=== PATIENT | male | born 1930 | race Two or more races ===

== ENCOUNTER 2021-07-23 15:41 | Inpatient (IN) | payer OTHER ==
[~2021-07-23] VITALS: Ht 177.8 cm; Wt 82.5 kg
[2021-07-23 17:12] LABS: Hematocrit 16.9 % (41.0-53.0); Mean Corpuscular Hemoglobin 39.2 pg (28.0-32.0); Mean Corpuscular Hgb Conc. 28.9 g/dL (32.0-36.0); Mean Corpuscular Volume 135.5 fL (80.0-100.0); Red Blood Cells 1.25 10^6/uL (4.5-5.90)
[2021-07-23 17:28] LABS: Basophils % (manual) 0 (0.0-2.0); Blast Cells 0; Eosinophils % (manual) 0 (0-7); Hemoglobin 4.9 g/dL (13.5-17.5); Metamyelocytes % 0; Myelocytes % 0; Promyelocytes % 0; Reactive Lymphocytes 0
[2021-07-23 17:29] LABS: Albumin 3.1 g/dL (3.4-5.0); BUN/Creatinine Ratio 18.4; Calcium 8.1 mg/dL (8.5-10.1)
[2021-07-23 17:34] LABS: Bilirubin, Total 0.6 mg/dL (0.2-1.0); Total Protein 5.3 g/dL (6.4-8.2)
[2021-07-23 17:42] LABS: Potassium 6.6 mmol/L (3.5-5.1)
[2021-07-23] MEDS ORDERED: CALCIUM GLUC 1,000mg/50ml-NS 50 ML IV ONE (18:30)
[2021-07-23] MEDS ORDERED: SODIUM BICARBONATE 8.4 % INJ 50ML VIAL IV ONE (18:30)
[2021-07-23] MEDS ORDERED: InsuLIN REG 1unit/0.01ml Soln (100units/ml) IV ONE (18:30)
[2021-07-23] MEDS ORDERED: ALBUTEROL SULF 2.5 MG/0.5ML(0.5%) NEB SOLN NEB ONE (18:30)
[2021-07-23] MEDS ORDERED: DEXTROSE (50%) 50ML SYRG IV ONE (18:30)
[2021-07-23 19:03] LABS: Band Neutrophils % (manual) 2; Lymphocytes % (manual) 59 (10.0-50.0); Monocytes % (manual) 6 (0-12)
[2021-07-23 20:50] VITALS: BP 82/21
[2021-07-23 21:05] VITALS: BP 83/23
[2021-07-23] MEDS ORDERED: MORPHINE SULFATE INJECTION 2 MG/ML SYRG IV PRN ×2 (21:15)
[2021-07-23] MEDS ORDERED: NITROGLYCERIN 0.4 MG SL TAB SL PRN (21:15)
[2021-07-23] MEDS ORDERED: DEXTROSE (50%) 50ML SYRG IV PRN (21:15)
[2021-07-23] MEDS ORDERED: SOD CHL 0.45% 1,000 ML IV ONE (21:15)
[2021-07-23] MEDS ORDERED: ONDANSETRON HCL 4 MG/2 ML VIAL IV PRN (21:15)
[2021-07-23] MEDS ORDERED: ALBUTEROL SULF 2.5 MG/0.5ML(0.5%) NEB SOLN NEB PRN (21:15)
[2021-07-23 22:15] VITALS: BP 88/24
[2021-07-23] MEDS: ACCU-CHEK COMFORT CURVE STRIP VI SCH (22:26)
[2021-07-23] MEDS: InsuLIN REG 1unit/0.01ml Soln (100units/ml) SC SCH (22:27)
[2021-07-23 22:30] VITALS: BP 82/23
[2021-07-23] MEDS ORDERED: ALBUMIN 25% 100 ML IV ONE (23:00)
[2021-07-23] MEDS: NOREPINEPHRINE 8 MG/250ML KIT 250 ML IV SCH (23:50)
[2021-07-24] MEDS: FUROSEMIDE 40 MG/4 ML VIAL IV SCH ×2 (01:34→06:25)
[2021-07-24] MEDS: ACCU-CHEK COMFORT CURVE STRIP VI SCH ×4 (06:23→21:49)
[2021-07-24] MEDS: InsuLIN REG 1unit/0.01ml Soln (100units/ml) SC SCH ×4 (06:24→23:44)
[2021-07-24 07:05] LABS: Urine Bacteria NONE SEEN /hpf (None Seen); Urine Blood 3+ /uL (Negative)
[2021-07-24 07:06] LABS: Urine WBC 10 /hpf (0 - 3)
[2021-07-24 07:13] LABS: Hemoglobin 7.3 g/dL (13.5-17.5)
[2021-07-24 07:18] LABS: Hematocrit 25.4 % (41.0-53.0); Mean Corpuscular Hgb Conc. 28.7 g/dL (32.0-36.0); Mean Corpuscular Volume 125.6 fL (80.0-100.0); Red Blood Cells 2.02 10^6/uL (4.5-5.90)
[2021-07-24 07:23] LABS: Red Cell Distribution Width 20.9 % (11.8-14.3)
[2021-07-24 07:25] LABS: White Blood Cell 79.2 10^3/uL (4.4-10.8)
[2021-07-24 07:27] LABS: Albumin 3.3 g/dL (3.4-5.0); Band Neutrophils % (manual) 0; Basophils % (manual) 0 (0.0-2.0); Calcium 7.9 mg/dL (8.5-10.1); Metamyelocytes % 0; Myelocytes % 0; Promyelocytes % 0
[2021-07-24 07:29] LABS: BUN/Creatinine Ratio 17.7
[2021-07-24 07:32] LABS: Bilirubin, Total 0.6 mg/dL (0.2-1.0); Total Protein 5.4 g/dL (6.4-8.2)
[2021-07-24 07:36] LABS: Potassium 6.1 mmol/L (3.5-5.1)
[2021-07-24 07:43] LABS: INR 1.19 (0.9-1.15)
[2021-07-24] MEDS: ALBUMIN 25% 100 ML IV SCH ×3 (08:33→23:47)
[2021-07-24] MEDS ORDERED: SODIUM ZIRCONIUM CYCL 10 GM PAK PO ONE (09:00)
[2021-07-24] MEDS ORDERED: VANCOMYCIN PER PHARMACY 0 MG IV SCH (09:00)
[2021-07-24] MEDS ORDERED: ACETAMINOPHEN 325 MG TAB PO PRN (09:15)
[2021-07-24] MEDS: SODIUM CHLORIDE 0.9% 1,000 ML IV SCH ×2 (09:37→09:38)
[2021-07-24] MEDS ORDERED: InsuLIN REG 1unit/0.01ml Soln (100units/ml) IV ONE ×2 (09:45→19:00)
[2021-07-24] MEDS ORDERED: DEXTROSE (50%) 50ML SYRG IV ONE ×2 (09:45→19:00)
[2021-07-24] MEDS ORDERED: SODIUM BICARBONATE 8.4 % INJ 50ML VIAL IV ONE (09:45)
[2021-07-24] MEDS ORDERED: CALCIUM GLUC 1,000mg/50ml-NS 50 ML IV ONE ×2 (09:45→19:00)
[2021-07-24] MEDS ORDERED: ALBUTEROL SULF 2.5 MG/0.5ML(0.5%) NEB SOLN NEB ONE ×2 (09:45→19:00)
[2021-07-24] MEDS: ACETAMINOPHEN 325 MG TAB PO PRN (10:05)
[2021-07-24] MEDS ORDERED: VANCOMYCIN 1GM/250ML 250 ML IV ONE (11:00)
[2021-07-24] MEDS: SODIUM BICARBONATE 50ML VIAL 150 ML in D5W 5% 1,000 ML IV SCH ×2 (11:05→18:46)
[2021-07-24 11:06] LABS: Lactic Acid w/Reflex 3.5 mmol/L (0.4-2.0)
[2021-07-24 11:08] LABS: Blast Cells 1; Eosinophils % (manual) 1 (0-7); Lymphocytes % (manual) 80 (10.0-50.0); Monocytes % (manual) 2 (0-12); Reactive Lymphocytes 2
[2021-07-24] MEDS ORDERED: DEXTROSE 50% SYRINGE 50 ML IV ONE (11:09)
[2021-07-24] MEDS ORDERED: ETOMIDATE (2MG/ML) 20ML VIAL IV ONE ×2 (12:11→12:20)
[2021-07-24] MEDS ORDERED: SUCCINYLCHOLINE CHLORIDE 20 MG/ML 10ML VIAL IV ONE ×2 (12:12→12:20)
[2021-07-24] MEDS ORDERED: ROCURONIUM 10MG/ML 10ML VIAL IV ONE ×2 (12:35→12:45)
[2021-07-24 12:36] VITALS: BP 106/18
[2021-07-24] MEDS: DOPamine 1600MCG/ML D5W 250 ML IV SCH ×2 (13:20→21:50)
[2021-07-24] MEDS: MIDAZOLAM DRIP 50 mg/50mL 50 ML IV SCH ×2 (13:54→19:33)
[2021-07-24] MEDS ORDERED: CEFEPIME 1 GM in SODIUM CHL 0.9% 50 ML IV SCH (14:00)
[2021-07-24 14:52] VITALS: BP 112/26
[2021-07-24 14:54] LABS: BUN/Creatinine Ratio 16.9; Calcium 7.8 mg/dL (8.5-10.1)
[2021-07-24 14:58] LABS: Potassium 6.9 mmol/L (3.5-5.1)
[2021-07-24] MEDS: FUROSEMIDE INJECTION 100 MG in SODIUM CHL 0.9% 100 ML IV SCH ×2 (15:13→23:45)
[2021-07-24 18:10] VITALS: BP 146/41
[2021-07-24] MEDS ORDERED: metOLazone 5 MG TAB GT ONE (19:30)
[2021-07-24] MEDS: SODIUM ZIRCONIUM CYCL 10 GM PAK GT SCH (23:42)
[2021-07-24] MEDS: NOREPINEPHRINE 8 MG/250ML KIT 250 ML IV SCH (23:45)
[2021-07-25 02:10] VITALS: BP 149/36
[2021-07-25] MEDS: SODIUM BICARBONATE 50ML VIAL 150 ML in D5W 5% 1,000 ML IV SCH ×3 (05:07→22:37)
[2021-07-25] MEDS: ACCU-CHEK COMFORT CURVE STRIP VI SCH ×4 (06:37→22:08)
[2021-07-25] MEDS: InsuLIN REG 1unit/0.01ml Soln (100units/ml) SC SCH ×4 (06:49→22:13)
[2021-07-25 07:08] VITALS: BP 145/38
[2021-07-25 07:12] LABS: Hemoglobin 8.1 g/dL (13.5-17.5)
[2021-07-25 07:18] LABS: Hematocrit 26.7 % (41.0-53.0); Mean Corpuscular Hemoglobin 37.1 pg (28.0-32.0); Mean Corpuscular Hgb Conc. 30.3 g/dL (32.0-36.0); Mean Corpuscular Volume 122.6 fL (80.0-100.0); Red Blood Cells 2.18 10^6/uL (4.5-5.90); Red Cell Distribution Width 19.5 % (11.8-14.3)
[2021-07-25 07:25] LABS: White Blood Cell 145.7 10^3/uL (4.4-10.8)
[2021-07-25 07:26] LABS: Basophils % (manual) 0 (0.0-2.0); Blast Cells 0; Eosinophils % (manual) 0 (0-7); Metamyelocytes % 0; Promyelocytes % 0; Reactive Lymphocytes 0
[2021-07-25 07:29] LABS: Albumin 3.7 g/dL (3.4-5.0); Calcium 7.8 mg/dL (8.5-10.1); Potassium 5.3 mmol/L (3.5-5.1)
[2021-07-25 07:34] LABS: BUN/Creatinine Ratio 17.7; Bilirubin, Total 1.1 mg/dL (0.2-1.0); Total Protein 5.3 g/dL (6.4-8.2)
[2021-07-25] MEDS: SODIUM ZIRCONIUM CYCL 10 GM PAK GT SCH ×3 (07:41→22:08)
[2021-07-25 07:56] LABS: Band Neutrophils % (manual) 4; Lymphocytes % (manual) 77 (10.0-50.0); Monocytes % (manual) 3 (0-12); Myelocytes % 1
[2021-07-25] MEDS ORDERED: VANCOMYCIN 1GM/250ML 250 ML IV ONE (09:00)
[2021-07-25] MEDS: FUROSEMIDE INJECTION 100 MG in SODIUM CHL 0.9% 100 ML IV SCH ×2 (10:15→19:30)
[2021-07-25 10:26] VITALS: BP 146/38
[2021-07-25] MEDS: DOPamine 1600MCG/ML D5W 250 ML IV SCH ×2 (10:38→22:30)
[2021-07-25] MEDS: ALBUMIN 25% 100 ML IV SCH ×2 (11:04→16:00)
[2021-07-25] MEDS ORDERED: SODIUM CHL 0.9% 1000 ML BAG XX ONE (12:00)
[2021-07-25] MEDS ORDERED: MEROPENEM 500MG IVPB 50 ML IV STA (12:51)
[2021-07-25 13:42] LABS: Folate (Folic Acid) 9.52 ng/mL (5.38-24)
[2021-07-25 14:10] VITALS: BP 167/38
[2021-07-25] MEDS ORDERED: fentaNYL Drip 2500mCg/250mlNS 250 ML IV ONE (18:10)
[2021-07-25] MEDS: fentaNYL Drip 2500mCg/250mlNS 250 ML IV SCH (18:20)
[2021-07-25 18:45] VITALS: BP 164/37
[2021-07-25 19:15] LABS: INR 1.34 (0.9-1.15); Partial Thromboplastin Time 37.8 sec (23.6-33.0)
[2021-07-25] MEDS ORDERED: EPOETIN ALFA-EPBX 10,000 UNIT/1ML VIAL SC ONE (21:00)
[2021-07-25] MEDS: MEROPENEM 1GM IVPB 100 ML IV SCH (22:08)
[2021-07-25] MEDS: NOREPINEPHRINE 8 MG/250ML KIT 250 ML IV SCH (22:09)
[2021-07-25] MEDS: ACETAMINOPHEN 325 MG TAB PO PRN ×2 (22:17→22:39)
[2021-07-25 22:34] VITALS: BP 172/46
[2021-07-25] MEDS: MIDAZOLAM DRIP 50 mg/50mL 50 ML IV SCH (23:30)
[2021-07-26 02:31] VITALS: BP 173/42
[2021-07-26] MEDS: DOPamine 1600MCG/ML D5W 250 ML IV SCH ×2 (03:11→23:00)
[2021-07-26] MEDS: NOREPINEPHRINE 8 MG/250ML KIT 250 ML IV SCH ×2 (03:12→22:25)
[2021-07-26] MEDS: MIDAZOLAM DRIP 50 mg/50mL 50 ML IV SCH ×2 (03:14→22:24)
[2021-07-26] MEDS: FUROSEMIDE INJECTION 100 MG in SODIUM CHL 0.9% 100 ML IV SCH ×3 (04:35→22:23)
[2021-07-26] MEDS: SODIUM ZIRCONIUM CYCL 10 GM PAK GT SCH ×3 (06:22→22:21)
[2021-07-26] MEDS: InsuLIN REG 1unit/0.01ml Soln (100units/ml) SC SCH ×4 (06:23→22:50)
[2021-07-26] MEDS: ACCU-CHEK COMFORT CURVE STRIP VI SCH ×4 (06:23→22:22)
[2021-07-26] MEDS: ACETAMINOPHEN 325 MG TAB PO PRN ×2 (06:23→18:59)
[2021-07-26] MEDS ORDERED: ALBUMIN 25% 100 ML IV PRN (06:45)
[2021-07-26 07:00] VITALS: BP 167/43
[2021-07-26] MEDS: SODIUM BICARBONATE 50ML VIAL 150 ML in D5W 5% 1,000 ML IV SCH ×3 (07:45→22:48)
[2021-07-26 09:35] VITALS: BP 171/45
[2021-07-26] MEDS: ALBUMIN 25% 100 ML IV SCH ×3 (10:00→17:45)
[2021-07-26 10:41] LABS: Mean Corpuscular Hgb Conc. 32.4 g/dL (32.0-36.0); Red Blood Cells 2.31 10^6/uL (4.5-5.90)
[2021-07-26 10:43] LABS: Hematocrit 26.4 % (41.0-53.0); Hemoglobin 8.5 g/dL (13.5-17.5); Mean Corpuscular Volume 114.2 fL (80.0-100.0); Red Cell Distribution Width 17.5 % (11.8-14.3)
[2021-07-26 10:50] LABS: Band Neutrophils % (manual) 0; Basophils % (manual) 0 (0.0-2.0); Blast Cells 0; Eosinophils % (manual) 0 (0-7); Metamyelocytes % 0; Monocytes % (manual) 0 (0-12); Myelocytes % 0; Promyelocytes % 0; Reactive Lymphocytes 0; White Blood Cell 198.6 10^3/uL (4.4-10.8)
[2021-07-26 11:01] LABS: Potassium 4.7 mmol/L (3.5-5.1)
[2021-07-26 11:10] LABS: Albumin 4.5 g/dL (3.4-5.0); BUN/Creatinine Ratio 17.3; Bilirubin, Total 2.2 mg/dL (0.2-1.0); Calcium 8.5 mg/dL (8.5-10.1); Lymphocytes % (manual) 94 (10.0-50.0); Total Protein 6.9 g/dL (6.4-8.2)
[2021-07-26] MEDS: PANTOPRAZOLE 40 MG/10 ML VIAL INJ IV SCH (13:00)
[2021-07-26] MEDS: MEROPENEM 1GM IVPB 100 ML IV SCH ×2 (13:00→22:21)
[2021-07-26 14:06] VITALS: BP 170/50
[2021-07-26] MEDS ORDERED: VANCOMYCIN 1GM/250ML 250 ML IV ONE (15:00)
[2021-07-26] MEDS ORDERED: hydroxyUREA 500 MG CAP PO ONE (15:45)
[2021-07-26] MEDS: fentaNYL Drip 2500mCg/250mlNS 250 ML IV SCH (18:15)
[2021-07-26 18:56] VITALS: BP 170/52
[2021-07-26 23:07] VITALS: BP 172/45
[2021-07-27] VITALS (18 sets, daily range): BP systolic 136–169; BP diastolic 18–45
[2021-07-27] MEDS: ALBUMIN 25% 100 ML IV SCH ×3 (01:03→18:50)
[2021-07-27] MEDS: MIDAZOLAM DRIP 50 mg/50mL 50 ML IV SCH ×2 (03:26→03:27)
[2021-07-27] MEDS: fentaNYL Drip 2500mCg/250mlNS 250 ML IV SCH (03:35)
[2021-07-27] MEDS: SODIUM ZIRCONIUM CYCL 10 GM PAK GT SCH (06:19)
[2021-07-27] MEDS: ACCU-CHEK COMFORT CURVE STRIP VI SCH ×4 (06:20→22:00)
[2021-07-27] MEDS: InsuLIN REG 1unit/0.01ml Soln (100units/ml) SC SCH ×4 (06:26→22:00)
[2021-07-27 09:03] LABS: Hematocrit 23.9 % (41.0-53.0); Hemoglobin 7.2 g/dL (13.5-17.5); Mean Corpuscular Hemoglobin 34.9 pg (28.0-32.0); Mean Corpuscular Volume 116.2 fL (80.0-100.0); Red Blood Cells 2.05 10^6/uL (4.5-5.90); Red Cell Distribution Width 16.5 % (11.8-14.3)
[2021-07-27 09:26] LABS: Albumin 3.4 g/dL (3.4-5.0); Calcium 8.4 mg/dL (8.5-10.1); Potassium 4.4 mmol/L (3.5-5.1)
[2021-07-27 09:29] LABS: White Blood Cell 107.6 10^3/uL (4.4-10.8)
[2021-07-27 09:30] LABS: BUN/Creatinine Ratio 18.4; Band Neutrophils % (manual) 0; Basophils % (manual) 0 (0.0-2.0); Bilirubin, Total 1.6 mg/dL (0.2-1.0); Blast Cells 0; Eosinophils % (manual) 0 (0-7); Metamyelocytes % 0; Myelocytes % 0; Promyelocytes % 0; Reactive Lymphocytes 0; Total Protein 5.8 g/dL (6.4-8.2); Uric Acid 10.3 mg/dL (3.5-7.2)
[2021-07-27] MEDS: FUROSEMIDE INJECTION 100 MG in SODIUM CHL 0.9% 100 ML IV SCH ×2 (09:30→20:48)
[2021-07-27] MEDS: PANTOPRAZOLE 40 MG/10 ML VIAL INJ IV SCH (10:16)
[2021-07-27] MEDS: MEROPENEM 1GM IVPB 100 ML IV SCH ×2 (10:16→13:21)
[2021-07-27] MEDS: DOPamine 1600MCG/ML D5W 250 ML IV SCH ×2 (11:15→23:00)
[2021-07-27] MEDS: SODIUM BICARBONATE 50ML VIAL 150 ML in D5W 5% 1,000 ML IV SCH ×2 (11:21→20:33)
[2021-07-27 12:43] LABS: Lymphocytes % (manual) 85 (10.0-50.0); Monocytes % (manual) 3 (0-12)
[2021-07-27 13:03] LABS: Magnesium 2.1 mg/dL (1.6-2.6); Phosphorus 6.1 mg/dL (2.5-4.90)
[2021-07-27] MEDS ORDERED: hydroxyUREA 500 MG CAP PO SCH (14:00)
[2021-07-27] MEDS: methylPREDNISolone SOD SUCC 40 MG/ML VL IV SCH (21:07)
[2021-07-27] MEDS: NOREPINEPHRINE 8 MG/250ML KIT 250 ML IV SCH (23:00)
[2021-07-28] VITALS (30 sets, daily range): BP systolic 111–154; BP diastolic 21–72
[2021-07-28] MEDS: ALBUMIN 25% 100 ML IV SCH ×3 (00:24→16:00)
[2021-07-28] MEDS: MEROPENEM 1GM IVPB 100 ML IV SCH (01:00)
[2021-07-28 04:52] LABS: Hematocrit 19.5 % (41.0-53.0); Mean Corpuscular Hemoglobin 35.7 pg (28.0-32.0); Mean Corpuscular Hgb Conc. 31.3 g/dL (32.0-36.0); Mean Corpuscular Volume 114.2 fL (80.0-100.0); Red Cell Distribution Width 16.2 % (11.8-14.3)
[2021-07-28] MEDS: SODIUM BICARBONATE 50ML VIAL 150 ML in D5W 5% 1,000 ML IV SCH ×2 (05:10→23:32)
[2021-07-28 05:20] LABS: White Blood Cell 50.4 10^3/uL (4.4-10.8)
[2021-07-28 05:21] LABS: Basophils % (manual) 0 (0.0-2.0); Blast Cells 0; Eosinophils % (manual) 0 (0-7); Hemoglobin 6.1 g/dL (13.5-17.5); Metamyelocytes % 0; Monocytes % (manual) 0 (0-12); Myelocytes % 0; Promyelocytes % 0; Reactive Lymphocytes 0
[2021-07-28 05:41] LABS: Calcium 8.4 mg/dL (8.5-10.1); Potassium 3.8 mmol/L (3.5-5.1)
[2021-07-28 05:43] LABS: Albumin 3.5 g/dL (3.4-5.0); BUN/Creatinine Ratio 22.4
[2021-07-28 05:45] LABS: Bilirubin, Total 1.3 mg/dL (0.2-1.0); Total Protein 5.1 g/dL (6.4-8.2)
[2021-07-28] MEDS: InsuLIN REG 1unit/0.01ml Soln (100units/ml) SC SCH ×4 (05:49→22:07)
[2021-07-28] MEDS: ACCU-CHEK COMFORT CURVE STRIP VI SCH ×4 (05:49→21:59)
[2021-07-28 06:58] LABS: Band Neutrophils % (manual) 4; Lymphocytes % (manual) 82 (10.0-50.0)
[2021-07-28] MEDS: PANTOPRAZOLE 40 MG/10 ML VIAL INJ IV SCH (09:18)
[2021-07-28] MEDS: methylPREDNISolone SOD SUCC 40 MG/ML VL IV SCH ×2 (09:18→21:45)
[2021-07-28] MEDS: ALLOPURINOL 100 MG TAB PO SCH (12:16)
[2021-07-28] MEDS: MIDAZOLAM DRIP 50 mg/50mL 50 ML IV SCH (12:30)
[2021-07-28 12:31] LABS: INR 1.17 (0.9-1.15); Partial Thromboplastin Time 39.9 sec (23.6-33.0)
[2021-07-28] MEDS: DOPamine 1600MCG/ML D5W 250 ML IV SCH (12:39)
[2021-07-28] MEDS: D5W 5% IV SCH (14:04)
[2021-07-28] MEDS: MEROPENEM IV SCH (14:04)
[2021-07-28] MEDS: fentaNYL Drip 2500mCg/250mlNS 250 ML IV SCH (18:15)
[2021-07-28] MEDS: NOREPINEPHRINE 8 MG/250ML KIT 250 ML IV SCH (23:00)
[2021-07-29] VITALS (30 sets, daily range): BP systolic 108–139; BP diastolic 32–57
[2021-07-29] MEDS: ALBUMIN 25% 100 ML IV SCH ×3 (00:05→16:12)
[2021-07-29] MEDS: D5W 5% IV SCH ×2 (01:48→13:00)
[2021-07-29] MEDS: MEROPENEM IV SCH ×2 (01:48→13:00)
[2021-07-29 03:29] LABS: Hematocrit 22.5 % (41.0-53.0); Hemoglobin 7.2 g/dL (13.5-17.5); Mean Corpuscular Hemoglobin 34.8 pg (28.0-32.0); Mean Corpuscular Volume 108.9 fL (80.0-100.0); Red Blood Cells 2.07 10^6/uL (4.5-5.90)
[2021-07-29 03:59] LABS: Albumin 3.6 g/dL (3.4-5.0); BUN/Creatinine Ratio 26.4; Calcium 8.9 mg/dL (8.5-10.1); Potassium 3.6 mmol/L (3.5-5.1)
[2021-07-29 04:02] LABS: Total Protein 5.3 g/dL (6.4-8.2)
[2021-07-29 04:43] LABS: White Blood Cell 42.7 10^3/uL (4.4-10.8)
[2021-07-29 04:44] LABS: Basophils % (manual) 0 (0.0-2.0); Blast Cells 0; Eosinophils % (manual) 0 (0-7); Metamyelocytes % 0; Myelocytes % 0; Promyelocytes % 0; Reactive Lymphocytes 0
[2021-07-29] MEDS: ACCU-CHEK COMFORT CURVE STRIP VI SCH ×4 (06:18→21:48)
[2021-07-29] MEDS: InsuLIN REG 1unit/0.01ml Soln (100units/ml) SC SCH ×4 (06:19→22:05)
[2021-07-29 06:20] LABS: Band Neutrophils % (manual) 1; Lymphocytes % (manual) 80 (10.0-50.0); Monocytes % (manual) 1 (0-12)
[2021-07-29] MEDS: SODIUM BICARBONATE 50ML VIAL 150 ML in D5W 5% 1,000 ML IV SCH ×2 (09:16→21:47)
[2021-07-29] MEDS: DOPamine 1600MCG/ML D5W 250 ML IV SCH (09:45)
[2021-07-29] MEDS ORDERED: cefTRIAXone 1GM/50ML D5W 50 ML IV ONE (10:13)
[2021-07-29] MEDS ORDERED: POTASSIUM CHL 20MEQ/100ML 100 ML IV ONE (10:29)
[2021-07-29] MEDS ORDERED: methylPREDNISolone SOD SUCC 40 MG/ML VL ONE (10:36)
[2021-07-29] MEDS: POTASSIUM CHL 20MEQ/50ML 50 ML IV SCH ×3 (11:29→15:33)
[2021-07-29] MEDS: BUMETANIDE 2.5mg/10ml (0.25 mg/ml) INJ IV SCH (11:30)
[2021-07-29] MEDS: PANTOPRAZOLE 40 MG/10 ML VIAL INJ IV SCH (11:31)
[2021-07-29] MEDS: methylPREDNISolone SOD SUCC 40 MG/ML VL IV SCH ×2 (11:31→21:48)
[2021-07-29] MEDS: ALLOPURINOL 100 MG TAB PO SCH (11:31)
[2021-07-29] MEDS: MIDAZOLAM DRIP 50 mg/50mL 50 ML IV SCH (12:30)
[2021-07-29] MEDS: NOREPINEPHRINE 8 MG/250ML KIT 250 ML IV SCH (23:00)
[2021-07-30] VITALS (38 sets, daily range): BP systolic 99–158; BP diastolic 34–60
[2021-07-30] MEDS: DOPamine 1600MCG/ML D5W 250 ML IV SCH ×2 (00:19→09:29)
[2021-07-30] MEDS: ALBUMIN 25% 100 ML IV SCH ×4 (00:20→23:40)
[2021-07-30] MEDS: fentaNYL Drip 2500mCg/250mlNS 250 ML IV SCH ×2 (00:31→14:00)
[2021-07-30] MEDS: MEROPENEM IV SCH ×2 (02:14→13:00)
[2021-07-30] MEDS: D5W 5% IV SCH ×2 (02:14→13:00)
[2021-07-30 03:31] LABS: Hematocrit 20.2 % (41.0-53.0); Mean Corpuscular Hemoglobin 34.9 pg (28.0-32.0); Mean Corpuscular Hgb Conc. 32.1 g/dL (32.0-36.0); Mean Corpuscular Volume 108.6 fL (80.0-100.0); Red Blood Cells 1.86 10^6/uL (4.5-5.90); Red Cell Distribution Width 19.7 % (11.8-14.3)
[2021-07-30 03:40] LABS: Band Neutrophils % (manual) 0; Basophils % (manual) 0 (0.0-2.0); Blast Cells 0; Eosinophils % (manual) 0 (0-7); Hemoglobin 6.5 g/dL (13.5-17.5); Metamyelocytes % 0; Monocytes % (manual) 0 (0-12); Myelocytes % 0; Promyelocytes % 0; Reactive Lymphocytes 0
[2021-07-30 04:15] LABS: Albumin 3.7 g/dL (3.4-5.0); BUN/Creatinine Ratio 32.1; Calcium 8.7 mg/dL (8.5-10.1); Potassium 3.1 mmol/L (3.5-5.1)
[2021-07-30 04:18] LABS: Bilirubin, Total 0.9 mg/dL (0.2-1.0); Total Protein 5.2 g/dL (6.4-8.2)
[2021-07-30] MEDS: SODIUM BICARBONATE 50ML VIAL 150 ML in D5W 5% 1,000 ML IV SCH (06:36)
[2021-07-30] MEDS: ACCU-CHEK COMFORT CURVE STRIP VI SCH ×4 (06:37→21:47)
[2021-07-30] MEDS: InsuLIN REG 1unit/0.01ml Soln (100units/ml) SC SCH ×4 (06:50→21:39)
[2021-07-30 08:35] LABS: Lymphocytes % (manual) 84 (10.0-50.0)
[2021-07-30 09:28] LABS: Hematocrit 20.2 % (41.0-53.0); Mean Corpuscular Hemoglobin 36.1 pg (28.0-32.0); Mean Corpuscular Hgb Conc. 33.1 g/dL (32.0-36.0); Red Blood Cells 1.85 10^6/uL (4.5-5.90); Red Cell Distribution Width 19.8 % (11.8-14.3)
[2021-07-30] MEDS: BUMETANIDE 2.5mg/10ml (0.25 mg/ml) INJ IV SCH (09:31)
[2021-07-30] MEDS: ALLOPURINOL 100 MG TAB PO SCH (09:31)
[2021-07-30] MEDS: methylPREDNISolone SOD SUCC 40 MG/ML VL IV SCH ×2 (09:32→21:47)
[2021-07-30] MEDS: PANTOPRAZOLE 40 MG/10 ML VIAL INJ IV SCH (09:33)
[2021-07-30 09:37] LABS: White Blood Cell 47.3 10^3/uL (4.4-10.8)
[2021-07-30 09:38] LABS: Hemoglobin 6.7 g/dL (13.5-17.5)
[2021-07-30 09:39] LABS: Band Neutrophils % (manual) 0; Basophils % (manual) 0 (0.0-2.0); Blast Cells 0; Eosinophils % (manual) 0 (0-7); Metamyelocytes % 0; Monocytes % (manual) 0 (0-12); Promyelocytes % 0; Reactive Lymphocytes 0
[2021-07-30 11:10] LABS: Lymphocytes % (manual) 91 (10.0-50.0); Myelocytes % 1
[2021-07-30] MEDS: POTASSIUM CHL 20MEQ/50ML 50 ML IV SCH ×2 (12:15→14:41)
[2021-07-30] MEDS: MIDAZOLAM DRIP 50 mg/50mL 50 ML IV SCH ×2 (12:30→15:45)
[2021-07-30] MEDS: NOREPINEPHRINE 8 MG/250ML KIT 250 ML IV SCH (23:00)
[2021-07-31] VITALS (43 sets, daily range): BP systolic 107–141; BP diastolic 37–67
[2021-07-31] MEDS: D5W 5% IV SCH ×2 (00:31→13:13)
[2021-07-31] MEDS: MEROPENEM IV SCH ×2 (00:31→13:13)
[2021-07-31 03:33] LABS: Mean Corpuscular Hemoglobin 33.9 pg (28.0-32.0)
[2021-07-31 03:35] LABS: Hematocrit 21.1 % (41.0-53.0); Mean Corpuscular Hgb Conc. 32.1 g/dL (32.0-36.0); Mean Corpuscular Volume 105.6 fL (80.0-100.0)
[2021-07-31 03:46] LABS: Albumin 3.8 g/dL (3.4-5.0); BUN/Creatinine Ratio 33.9; Calcium 8.8 mg/dL (8.5-10.1); Potassium 3.2 mmol/L (3.5-5.1)
[2021-07-31 04:00] LABS: Bilirubin, Total 1.1 mg/dL (0.2-1.0)
[2021-07-31] MEDS: fentaNYL Drip 2500mCg/250mlNS 250 ML IV SCH (04:22)
[2021-07-31 05:01] LABS: Red Cell Distribution Width 22.1 % (11.8-14.3)
[2021-07-31 05:02] LABS: White Blood Cell 37.7 10^3/uL (4.4-10.8)
[2021-07-31 05:03] LABS: Basophils % (manual) 0 (0.0-2.0); Blast Cells 0; Eosinophils % (manual) 0 (0-7); Hemoglobin 6.8 g/dL (13.5-17.5); Metamyelocytes % 0; Myelocytes % 0; Promyelocytes % 0; Reactive Lymphocytes 0
[2021-07-31] MEDS: MIDAZOLAM DRIP 50 mg/50mL 50 ML IV SCH (05:52)
[2021-07-31] MEDS: ACETAMINOPHEN 325 MG TAB PO PRN (05:54)
[2021-07-31] MEDS: InsuLIN REG 1unit/0.01ml Soln (100units/ml) SC SCH ×4 (05:55→21:43)
[2021-07-31] MEDS: ACCU-CHEK COMFORT CURVE STRIP VI SCH ×4 (07:00→21:46)
[2021-07-31 07:51] LABS: Band Neutrophils % (manual) 1; Lymphocytes % (manual) 85 (10.0-50.0); Monocytes % (manual) 3 (0-12)
[2021-07-31] MEDS: ALBUMIN 25% 100 ML IV SCH ×2 (08:25→16:05)
[2021-07-31] MEDS ORDERED: POTASSIUM EFFERVESENT TAB 25 MEQ GT ONE (09:00)
[2021-07-31] MEDS: DOPamine 1600MCG/ML D5W 250 ML IV SCH (09:45)
[2021-07-31] MEDS: BUMETANIDE 2.5mg/10ml (0.25 mg/ml) INJ IV SCH (10:06)
[2021-07-31] MEDS: PANTOPRAZOLE 40 MG/10 ML VIAL INJ IV SCH (10:06)
[2021-07-31] MEDS: ALLOPURINOL 100 MG TAB PO SCH (10:07)
[2021-07-31] MEDS: methylPREDNISolone SOD SUCC 40 MG/ML VL IV SCH ×2 (10:07→21:27)
[2021-07-31] MEDS: NOREPINEPHRINE 8 MG/250ML KIT 250 ML IV SCH (23:00)
[2021-08-01] VITALS (37 sets, daily range): BP systolic 105–132; BP diastolic 36–65
[2021-08-01] MEDS: ALBUMIN 25% 100 ML IV SCH ×4 (00:14→23:20)
[2021-08-01] MEDS: MEROPENEM 500MG IVPB 50 ML IV SCH ×2 (01:07→12:32)
[2021-08-01 03:55] LABS: Hematocrit 20.2 % (41.0-53.0); Mean Corpuscular Hemoglobin 34.4 pg (28.0-32.0); Mean Corpuscular Hgb Conc. 32.2 g/dL (32.0-36.0); Mean Corpuscular Volume 106.6 fL (80.0-100.0); Red Blood Cells 1.89 10^6/uL (4.5-5.90)
[2021-08-01 04:31] LABS: Albumin 4.2 g/dL (3.4-5.0); Calcium 8.7 mg/dL (8.5-10.1)
[2021-08-01 04:42] LABS: BUN/Creatinine Ratio 36.7; Bilirubin, Total 1.4 mg/dL (0.2-1.0); Total Protein 5.3 g/dL (6.4-8.2)
[2021-08-01] MEDS: MIDAZOLAM DRIP 50 mg/50mL 50 ML IV SCH ×2 (04:55→10:35)
[2021-08-01 05:05] LABS: Hemoglobin 6.5 g/dL (13.5-17.5); Red Cell Distribution Width 21.5 % (11.8-14.3); White Blood Cell 41.2 10^3/uL (4.4-10.8)
[2021-08-01 05:06] LABS: Band Neutrophils % (manual) 0; Basophils % (manual) 0 (0.0-2.0); Blast Cells 0; Eosinophils % (manual) 0 (0-7); Metamyelocytes % 0; Myelocytes % 0; Potassium 2.8 mmol/L (3.5-5.1); Promyelocytes % 0; Reactive Lymphocytes 0
[2021-08-01] MEDS: InsuLIN REG 1unit/0.01ml Soln (100units/ml) SC SCH ×4 (05:19→21:49)
[2021-08-01] MEDS: fentaNYL Drip 2500mCg/250mlNS 250 ML IV SCH (06:37)
[2021-08-01 07:00] LABS: Lymphocytes % (manual) 85 (10.0-50.0); Monocytes % (manual) 2 (0-12)
[2021-08-01] MEDS ORDERED: SODIUM CHL 0.9% 1000 ML BAG XX ONE (07:00)
[2021-08-01] MEDS: DOPamine 1600MCG/ML D5W 250 ML IV SCH (09:45)
[2021-08-01] MEDS: PANTOPRAZOLE 40 MG/10 ML VIAL INJ IV SCH (10:58)
[2021-08-01] MEDS: methylPREDNISolone SOD SUCC 40 MG/ML VL IV SCH ×2 (10:59→21:35)
[2021-08-01] MEDS: BUMETANIDE 2.5mg/10ml (0.25 mg/ml) INJ IV SCH ×2 (10:59→18:34)
[2021-08-01] MEDS: ALLOPURINOL 100 MG TAB PO SCH (10:59)
[2021-08-01] MEDS ORDERED: POTASSIUM CHL 20MEQ/50ML 50 ML IV ONE ×2 (11:30→12:10)
[2021-08-01] MEDS: ACCU-CHEK COMFORT CURVE STRIP VI SCH ×3 (12:15→21:50)
[2021-08-01 21:33] LABS: Calcium 8.3 mg/dL (8.5-10.1); Potassium 3.7 mmol/L (3.5-5.1)
[2021-08-01 21:42] LABS: BUN/Creatinine Ratio 37.9
[2021-08-01] MEDS: NOREPINEPHRINE 8 MG/250ML KIT 250 ML IV SCH (23:00)
[2021-08-02] VITALS (27 sets, daily range): BP systolic 102–142; BP diastolic 14–101
[2021-08-02] MEDS: MEROPENEM 500MG IVPB 50 ML IV SCH ×2 (00:30→13:24)
[2021-08-02] MEDS: MIDAZOLAM DRIP 50 mg/50mL 50 ML IV SCH ×3 (00:31→08:44)
[2021-08-02 04:24] LABS: Mean Corpuscular Hgb Conc. 32.4 g/dL (32.0-36.0); Red Blood Cells 2.23 10^6/uL (4.5-5.90)
[2021-08-02 04:26] LABS: Hematocrit 23.7 % (41.0-53.0); Hemoglobin 7.7 g/dL (13.5-17.5); Mean Corpuscular Hemoglobin 34.4 pg (28.0-32.0); Mean Corpuscular Volume 106.1 fL (80.0-100.0)
[2021-08-02 04:35] LABS: Potassium 3.7 mmol/L (3.5-5.1)
[2021-08-02 04:42] LABS: Albumin 4.1 g/dL (3.4-5.0); BUN/Creatinine Ratio 42.8; Bilirubin, Total 1.9 mg/dL (0.2-1.0); Calcium 8.6 mg/dL (8.5-10.1); Total Protein 5.3 g/dL (6.4-8.2)
[2021-08-02 04:52] LABS: Red Cell Distribution Width 21.9 % (11.8-14.3)
[2021-08-02 04:57] LABS: White Blood Cell 48.6 10^3/uL (4.4-10.8)
[2021-08-02 04:58] LABS: Basophils % (manual) 0 (0.0-2.0); Blast Cells 0; Eosinophils % (manual) 0 (0-7); Myelocytes % 0; Promyelocytes % 0; Reactive Lymphocytes 0
[2021-08-02] MEDS: fentaNYL Drip 2500mCg/250mlNS 250 ML IV SCH ×2 (05:34→17:44)
[2021-08-02] MEDS: ACCU-CHEK COMFORT CURVE STRIP VI SCH ×4 (05:59→22:00)
[2021-08-02] MEDS: InsuLIN REG 1unit/0.01ml Soln (100units/ml) SC SCH ×4 (06:00→21:49)
[2021-08-02 06:56] LABS: Band Neutrophils % (manual) 3; Lymphocytes % (manual) 85 (10.0-50.0); Metamyelocytes % 1; Monocytes % (manual) 1 (0-12)
[2021-08-02] MEDS ORDERED: SODIUM CHL 0.9% 1000 ML BAG XX ONE (07:00)
[2021-08-02] MEDS: ALBUMIN 25% 100 ML IV SCH ×2 (08:30→15:41)
[2021-08-02] MEDS: DOPamine 1600MCG/ML D5W 250 ML IV SCH (09:45)
[2021-08-02] MEDS: PANTOPRAZOLE 40 MG/10 ML VIAL INJ IV SCH (10:29)
[2021-08-02] MEDS: methylPREDNISolone SOD SUCC 40 MG/ML VL IV SCH ×2 (10:29→22:00)
[2021-08-02] MEDS: BUMETANIDE 2.5mg/10ml (0.25 mg/ml) INJ IV SCH (10:29)
[2021-08-02] MEDS: ALLOPURINOL 100 MG TAB PO SCH (10:30)
[2021-08-02] MEDS ORDERED: EPOETIN ALFA-EPBX 10,000 UNIT/1ML VIAL SC ONE (21:00)
[2021-08-02] MEDS: NOREPINEPHRINE 8 MG/250ML KIT 250 ML IV SCH (23:00)
[2021-08-03] VITALS (32 sets, daily range): BP systolic 113–174; BP diastolic 15–57
[2021-08-03] MEDS: MEROPENEM 500MG IVPB 50 ML IV SCH ×2 (01:00→12:22)
[2021-08-03 03:56] LABS: Hematocrit 26.8 % (41.0-53.0); Hemoglobin 8.4 g/dL (13.5-17.5); Mean Corpuscular Hemoglobin 33.5 pg (28.0-32.0); Mean Corpuscular Hgb Conc. 31.4 g/dL (32.0-36.0); Mean Corpuscular Volume 106.8 fL (80.0-100.0); Red Blood Cells 2.51 10^6/uL (4.5-5.90)
[2021-08-03 04:12] LABS: Albumin 4.7 g/dL (3.4-5.0); BUN/Creatinine Ratio 41.8; Calcium 8.8 mg/dL (8.5-10.1); Potassium 3.8 mmol/L (3.5-5.1)
[2021-08-03 04:20] LABS: Bilirubin, Total 1.8 mg/dL (0.2-1.0)
[2021-08-03 04:24] LABS: Red Cell Distribution Width 21.6 % (11.8-14.3)
[2021-08-03 04:28] LABS: Band Neutrophils % (manual) 0; Basophils % (manual) 0 (0.0-2.0); Blast Cells 0; Eosinophils % (manual) 0 (0-7); Metamyelocytes % 0; Myelocytes % 0; Promyelocytes % 0; Reactive Lymphocytes 0
[2021-08-03] MEDS: InsuLIN REG 1unit/0.01ml Soln (100units/ml) SC SCH ×4 (06:18→22:00)
[2021-08-03] MEDS: fentaNYL Drip 2500mCg/250mlNS 250 ML IV SCH ×2 (06:21→18:54)
[2021-08-03] MEDS: ACCU-CHEK COMFORT CURVE STRIP VI SCH ×4 (07:00→22:00)
[2021-08-03 07:03] LABS: Lymphocytes % (manual) 81 (10.0-50.0); Monocytes % (manual) 2 (0-12)
[2021-08-03] MEDS: DOPamine 1600MCG/ML D5W 250 ML IV SCH (09:42)
[2021-08-03] MEDS: ALBUMIN 25% 100 ML IV SCH ×4 (09:43→23:21)
[2021-08-03] MEDS: methylPREDNISolone SOD SUCC 40 MG/ML VL IV SCH ×2 (09:44→22:00)
[2021-08-03] MEDS: PANTOPRAZOLE 40 MG/10 ML VIAL INJ IV SCH (09:44)
[2021-08-03] MEDS: ALLOPURINOL 100 MG TAB PO SCH (09:44)
[2021-08-03] MEDS: BUMETANIDE 2.5mg/10ml (0.25 mg/ml) INJ IV SCH (09:44)
[2021-08-03] MEDS: MIDAZOLAM DRIP 50 mg/50mL 50 ML IV SCH (10:47)
[2021-08-03] MEDS ORDERED: FUROSEMIDE 40 MG/4 ML VIAL IV ONE (13:00)
[2021-08-03] MEDS: NOREPINEPHRINE 8 MG/250ML KIT 250 ML IV SCH (23:00)
[2021-08-04] VITALS (30 sets, daily range): BP systolic 107–142; BP diastolic 19–45
[2021-08-04] MEDS: MEROPENEM 500MG IVPB 50 ML IV SCH ×2 (01:00→12:12)
[2021-08-04] MEDS: InsuLIN REG 1unit/0.01ml Soln (100units/ml) SC SCH ×3 (05:29→17:38)
[2021-08-04 06:52] LABS: Hematocrit 22.4 % (41.0-53.0); Hemoglobin 7.1 g/dL (13.5-17.5); Mean Corpuscular Hgb Conc. 31.9 g/dL (32.0-36.0); Mean Corpuscular Volume 106.7 fL (80.0-100.0)
[2021-08-04] MEDS: ACCU-CHEK COMFORT CURVE STRIP VI SCH ×3 (07:05→17:39)
[2021-08-04] MEDS: fentaNYL Drip 2500mCg/250mlNS 250 ML IV SCH (07:14)
[2021-08-04 07:15] LABS: Red Cell Distribution Width 21.1 % (11.8-14.3)
[2021-08-04 07:16] LABS: White Blood Cell 41.9 10^3/uL (4.4-10.8)
[2021-08-04 07:18] LABS: Band Neutrophils % (manual) 0; Basophils % (manual) 0 (0.0-2.0); Blast Cells 0; Eosinophils % (manual) 0 (0-7); Metamyelocytes % 0; Monocytes % (manual) 0 (0-12); Myelocytes % 0; Promyelocytes % 0; Reactive Lymphocytes 0
[2021-08-04 07:21] LABS: Albumin 4.4 g/dL (3.4-5.0); Calcium 9.1 mg/dL (8.5-10.1); Potassium 3.9 mmol/L (3.5-5.1)
[2021-08-04 07:24] LABS: BUN/Creatinine Ratio 46.1; Bilirubin, Total 1.6 mg/dL (0.2-1.0); Total Protein 5.5 g/dL (6.4-8.2)
[2021-08-04] MEDS: ALBUMIN 25% 100 ML IV SCH (07:25)
[2021-08-04 08:16] LABS: Lymphocytes % (manual) 94 (10.0-50.0)
[2021-08-04] MEDS: DOPamine 1600MCG/ML D5W 250 ML IV SCH (09:08)
[2021-08-04] MEDS: BUMETANIDE 2.5mg/10ml (0.25 mg/ml) INJ IV SCH (09:08)
[2021-08-04] MEDS: PANTOPRAZOLE 40 MG/10 ML VIAL INJ IV SCH (09:08)
[2021-08-04] MEDS: methylPREDNISolone SOD SUCC 40 MG/ML VL IV SCH ×2 (09:09→22:00)
[2021-08-04] MEDS: ALLOPURINOL 100 MG TAB PO SCH (09:09)
[2021-08-04] MEDS: D5W 5% 1,000 ML IV SCH ×2 (09:47→22:50)
[2021-08-04] MEDS: MIDAZOLAM DRIP 50 mg/50mL 50 ML IV SCH (13:04)
[2021-08-04] MEDS: BUMETANIDE 1mg/4ml VIAL (0.25mg/ml) IV SCH (17:39)
[2021-08-04] MEDS: INSULIN LANTUS (GLARGINE) 1 /0.01ml (100units/ml) SC SCH (22:00)
[2021-08-04] MEDS: NOREPINEPHRINE 8 MG/250ML KIT 250 ML IV SCH (23:00)
[2021-08-05] VITALS (26 sets, daily range): BP systolic 76–145; BP diastolic 32–55
[2021-08-05] MEDS: MEROPENEM 500MG IVPB 50 ML IV SCH (01:00)
[2021-08-05 04:52] LABS: Red Blood Cells 2.08 10^6/uL (4.5-5.90)
[2021-08-05 04:55] LABS: Hematocrit 22.1 % (41.0-53.0); Hemoglobin 7.2 g/dL (13.5-17.5); Mean Corpuscular Hemoglobin 34.5 pg (28.0-32.0); Mean Corpuscular Hgb Conc. 32.5 g/dL (32.0-36.0); Mean Corpuscular Volume 106.2 fL (80.0-100.0); White Blood Cell 27.9 10^3/uL (4.4-10.8)
[2021-08-05 05:03] LABS: Red Cell Distribution Width 20.3 % (11.8-14.3)
[2021-08-05 05:05] LABS: Basophils % (manual) 0 (0.0-2.0); Blast Cells 0; Eosinophils % (manual) 0 (0-7); Metamyelocytes % 0; Myelocytes % 0; Promyelocytes % 0
[2021-08-05 05:08] LABS: Albumin 4.2 g/dL (3.4-5.0); Calcium 9.1 mg/dL (8.5-10.1); Potassium 3.6 mmol/L (3.5-5.1)
[2021-08-05 05:15] LABS: BUN/Creatinine Ratio 47.8; Bilirubin, Total 1.5 mg/dL (0.2-1.0); Total Protein 5.5 g/dL (6.4-8.2)
[2021-08-05] MEDS: BUMETANIDE 1mg/4ml VIAL (0.25mg/ml) IV SCH ×2 (06:00→17:11)
[2021-08-05] MEDS: ACCU-CHEK COMFORT CURVE STRIP VI SCH ×5 (06:01→23:45)
[2021-08-05] MEDS: InsuLIN REG 1unit/0.01ml Soln (100units/ml) SC SCH ×5 (06:03→23:48)
[2021-08-05] MEDS ORDERED: SODIUM CHL 0.9% 1000 ML BAG XX ONE (07:00)
[2021-08-05 08:01] LABS: Band Neutrophils % (manual) 1; Lymphocytes % (manual) 48 (10.0-50.0); Monocytes % (manual) 2 (0-12); Reactive Lymphocytes 26
[2021-08-05] MEDS: methylPREDNISolone SOD SUCC 40 MG/ML VL IV SCH ×2 (09:13→21:38)
[2021-08-05] MEDS: ALLOPURINOL 100 MG TAB PO SCH (09:13)
[2021-08-05] MEDS: DOPamine 1600MCG/ML D5W 250 ML IV SCH (09:14)
[2021-08-05] MEDS: PANTOPRAZOLE 40 MG/10 ML VIAL INJ IV SCH (09:14)
[2021-08-05] MEDS: INSULIN LANTUS (GLARGINE) 1 /0.01ml (100units/ml) SC SCH ×2 (09:15→21:38)
[2021-08-05] MEDS ORDERED: CATHFLO ACTIVASE (ALTEPLASE) 2 MG VIAL IV ONE (09:45)
[2021-08-05] MEDS: NOREPINEPHRINE 8 MG/250ML KIT 250 ML IV SCH (10:07)
[2021-08-05] MEDS: D5W 5% 1,000 ML IV SCH (11:15)
[2021-08-05] MEDS: MIDAZOLAM DRIP 50 mg/50mL 50 ML IV SCH (11:15)
[2021-08-05 11:47] LABS: Hematocrit 30.3 % (41.0-53.0); Hemoglobin 9.3 g/dL (13.5-17.5)
[2021-08-05] MEDS: fentaNYL Drip 2500mCg/250mlNS 250 ML IV SCH (17:14)
[2021-08-05] MEDS ORDERED: EPOETIN ALFA-EPBX 10,000 UNIT/1ML VIAL SC ONE (21:00)
[2021-08-06] VITALS (18 sets, daily range): BP systolic 113–167; BP diastolic 37–68
[2021-08-06 03:31] LABS: Hemoglobin 7.9 g/dL (13.5-17.5)
[2021-08-06 03:35] LABS: Hematocrit 25.2 % (41.0-53.0); Mean Corpuscular Hemoglobin 33.2 pg (28.0-32.0); Mean Corpuscular Hgb Conc. 31.5 g/dL (32.0-36.0); Mean Corpuscular Volume 105.5 fL (80.0-100.0); Red Blood Cells 2.38 10^6/uL (4.5-5.90); Red Cell Distribution Width 19.9 % (11.8-14.3)
[2021-08-06 03:47] LABS: Potassium 3.1 mmol/L (3.5-5.1)
[2021-08-06 03:48] LABS: White Blood Cell 80.9 10^3/uL (4.4-10.8)
[2021-08-06 03:50] LABS: Band Neutrophils % (manual) 0; Basophils % (manual) 0 (0.0-2.0); Blast Cells 0; Eosinophils % (manual) 0 (0-7); Metamyelocytes % 0; Monocytes % (manual) 0 (0-12); Myelocytes % 0; Promyelocytes % 0; Reactive Lymphocytes 0
[2021-08-06 04:13] LABS: Bilirubin, Total 1.9 mg/dL (0.2-1.0); Total Protein 5.2 g/dL (6.4-8.2)
[2021-08-06 04:35] LABS: Lymphocytes % (manual) 86 (10.0-50.0)
[2021-08-06] MEDS: ACCU-CHEK COMFORT CURVE STRIP VI SCH ×4 (06:00→23:26)
[2021-08-06] MEDS: BUMETANIDE 1mg/4ml VIAL (0.25mg/ml) IV SCH ×2 (06:14→17:31)
[2021-08-06] MEDS: InsuLIN REG 1unit/0.01ml Soln (100units/ml) SC SCH ×4 (06:18→23:26)
[2021-08-06] MEDS: D5W 5% 1,000 ML IV SCH ×2 (07:30→14:50)
[2021-08-06] MEDS: PANTOPRAZOLE 40 MG/10 ML VIAL INJ IV SCH (09:18)
[2021-08-06] MEDS: ALLOPURINOL 100 MG TAB PO SCH (09:18)
[2021-08-06] MEDS: methylPREDNISolone SOD SUCC 40 MG/ML VL IV SCH ×2 (09:18→21:53)
[2021-08-06] MEDS: DOPamine 1600MCG/ML D5W 250 ML IV SCH (09:28)
[2021-08-06] MEDS: INSULIN LANTUS (GLARGINE) 1 /0.01ml (100units/ml) SC SCH ×2 (10:50→23:26)
[2021-08-06] MEDS: MIDAZOLAM DRIP 50 mg/50mL 50 ML IV SCH (12:30)
[2021-08-06] MEDS ORDERED: Nepro With Carb Steady 1 Liter Bottle GT SCH (15:15)
[2021-08-06] MEDS: POTASSIUM CHL 20MEQ/50ML 50 ML IV SCH ×3 (16:24→23:20)
[2021-08-07 05:00] VITALS: BP 119/47
[2021-08-07] MEDS: D5W 5% 1,000 ML IV SCH ×3 (05:31→23:48)
[2021-08-07] MEDS: BUMETANIDE 1mg/4ml VIAL (0.25mg/ml) IV SCH ×2 (05:32→18:01)
[2021-08-07 06:13] LABS: Hemoglobin 8.3 g/dL (13.5-17.5)
[2021-08-07 06:18] LABS: Hematocrit 26.8 % (41.0-53.0); Mean Corpuscular Hemoglobin 32.4 pg (28.0-32.0); Mean Corpuscular Hgb Conc. 30.9 g/dL (32.0-36.0); Mean Corpuscular Volume 105.1 fL (80.0-100.0); Red Blood Cells 2.55 10^6/uL (4.5-5.90)
[2021-08-07] MEDS: ACCU-CHEK COMFORT CURVE STRIP VI SCH ×4 (06:19→23:23)
[2021-08-07 06:20] LABS: Red Cell Distribution Width 20.4 % (11.8-14.3)
[2021-08-07] MEDS: InsuLIN REG 1unit/0.01ml Soln (100units/ml) SC SCH ×4 (06:21→23:31)
[2021-08-07 06:23] LABS: White Blood Cell 103.2 10^3/uL (4.4-10.8)
[2021-08-07 06:25] LABS: Band Neutrophils % (manual) 0; Basophils % (manual) 0 (0.0-2.0); Blast Cells 0; Eosinophils % (manual) 0 (0-7); Metamyelocytes % 0; Myelocytes % 0; Promyelocytes % 0; Reactive Lymphocytes 0
[2021-08-07 06:34] LABS: Potassium 3.4 mmol/L (3.5-5.1)
[2021-08-07 06:40] LABS: Albumin 4.1 g/dL (3.4-5.0); BUN/Creatinine Ratio 53.9; Bilirubin, Total 2.2 mg/dL (0.2-1.0); Calcium 9.1 mg/dL (8.5-10.1); Total Protein 5.6 g/dL (6.4-8.2)
[2021-08-07 09:00] VITALS: BP 148/77
[2021-08-07] MEDS: methylPREDNISolone SOD SUCC 40 MG/ML VL IV SCH ×2 (10:33→21:47)
[2021-08-07] MEDS: PANTOPRAZOLE 40 MG/10 ML VIAL INJ IV SCH (10:33)
[2021-08-07] MEDS: INSULIN LANTUS (GLARGINE) 1 /0.01ml (100units/ml) SC SCH ×2 (11:03→23:29)
[2021-08-07] MEDS: ALLOPURINOL 100 MG TAB PO SCH (11:03)
[2021-08-07 12:07] LABS: Lymphocytes % (manual) 80 (10.0-50.0); Monocytes % (manual) 2 (0-12)
[2021-08-07 13:00] VITALS: BP 140/50
[2021-08-07] MEDS ORDERED: LORazepam 2MG/ML-1ML VIAL IV PRN (14:00)
[2021-08-07 17:00] VITALS: BP 127/60
[2021-08-07 22:00] VITALS: BP 159/59
[2021-08-08 05:00] VITALS: BP 143/48
[2021-08-08] MEDS: ACCU-CHEK COMFORT CURVE STRIP VI SCH ×3 (05:59→17:26)
[2021-08-08] MEDS: InsuLIN REG 1unit/0.01ml Soln (100units/ml) SC SCH ×3 (06:17→17:27)
[2021-08-08] MEDS: BUMETANIDE 1mg/4ml VIAL (0.25mg/ml) IV SCH ×2 (06:36→11:30)
[2021-08-08] MEDS ORDERED: SODIUM CHL 0.9% 1000 ML BAG XX ONE (07:00)
[2021-08-08 07:58] LABS: Hematocrit 28.3 % (41.0-53.0); Hemoglobin 8.5 g/dL (13.5-17.5); Mean Corpuscular Hgb Conc. 29.9 g/dL (32.0-36.0); Mean Corpuscular Volume 106.9 fL (80.0-100.0); Red Blood Cells 2.64 10^6/uL (4.5-5.90); Red Cell Distribution Width 20.7 % (11.8-14.3)
[2021-08-08 08:03] LABS: Band Neutrophils % (manual) 0; White Blood Cell 125.4 10^3/uL (4.4-10.8)
[2021-08-08 08:04] LABS: Basophils % (manual) 0 (0.0-2.0); Blast Cells 0; Eosinophils % (manual) 0 (0-7); Metamyelocytes % 0; Myelocytes % 0; Promyelocytes % 0; Reactive Lymphocytes 0
[2021-08-08 08:07] LABS: Albumin 4.3 g/dL (3.4-5.0); Bilirubin, Total 2.3 mg/dL (0.2-1.0); CRP High Sensitivity 0.53 mg/dL (< 0.3); Calcium 9.4 mg/dL (8.5-10.1); Total Protein 5.9 g/dL (6.4-8.2)
[2021-08-08 09:00] VITALS: BP 149/38
[2021-08-08 09:54] LABS: BUN/Creatinine Ratio 53.6
[2021-08-08 09:56] LABS: Potassium 2.7 mmol/L (3.5-5.1)
[2021-08-08] MEDS: ALLOPURINOL 100 MG TAB PO SCH (10:00)
[2021-08-08] MEDS: INSULIN LANTUS (GLARGINE) 1 /0.01ml (100units/ml) SC SCH ×2 (10:22→22:09)
[2021-08-08] MEDS: PANTOPRAZOLE 40 MG/10 ML VIAL INJ IV SCH (10:26)
[2021-08-08] MEDS: POTASSIUM CHL 20MEQ/50ML 50 ML IV SCH ×2 (11:30→13:49)
[2021-08-08] MEDS: D5W 5% 1,000 ML IV SCH ×2 (11:30→21:52)
[2021-08-08 13:00] VITALS: BP 135/45
[2021-08-08 15:34] LABS: Lymphocytes % (manual) 90 (10.0-50.0); Monocytes % (manual) 2 (0-12)
[2021-08-08 17:00] VITALS: BP 163/44
[2021-08-08] MEDS ORDERED: EPOETIN ALFA-EPBX 10,000 UNIT/1ML VIAL SC ONE (21:00)
[2021-08-08 21:44] VITALS: BP 150/82
[2021-08-09] MEDS: ACCU-CHEK COMFORT CURVE STRIP VI SCH ×4 (00:04→18:00)
[2021-08-09] MEDS: InsuLIN REG 1unit/0.01ml Soln (100units/ml) SC SCH ×4 (00:09→18:00)
[2021-08-09] MEDS: D5W 5% 1,000 ML IV SCH (07:30)
[2021-08-09] MEDS: INSULIN LANTUS (GLARGINE) 1 /0.01ml (100units/ml) SC SCH ×2 (10:00→21:11)
[2021-08-09] MEDS: BUMETANIDE 1mg/4ml VIAL (0.25mg/ml) IV SCH (10:29)
[2021-08-09] MEDS: ALLOPURINOL 100 MG TAB PO SCH (10:29)
[2021-08-09] MEDS: predniSONE 20 MG TAB PO SCH (10:29)
[2021-08-09] MEDS: PANTOPRAZOLE 40 MG/10 ML VIAL INJ IV SCH (10:29)
[2021-08-09 10:47] LABS: Hematocrit 27.7 % (41.0-53.0); Hemoglobin 8.5 g/dL (13.5-17.5); Mean Corpuscular Hgb Conc. 30.7 g/dL (32.0-36.0); Mean Corpuscular Volume 107.4 fL (80.0-100.0); Red Blood Cells 2.58 10^6/uL (4.5-5.90)
[2021-08-09 11:04] LABS: Albumin 3.9 g/dL (3.4-5.0); Calcium 8.9 mg/dL (8.5-10.1)
[2021-08-09 11:09] LABS: Red Cell Distribution Width 20.6 % (11.8-14.3); White Blood Cell 103.1 10^3/uL (4.4-10.8)
[2021-08-09 11:10] LABS: Basophils % (manual) 0 (0.0-2.0); Blast Cells 0; Eosinophils % (manual) 0 (0-7); Metamyelocytes % 0; Myelocytes % 0; Promyelocytes % 0; Reactive Lymphocytes 0
[2021-08-09] MEDS ORDERED: D5W 5% 1,000 ML IV SCH (11:15)
[2021-08-09 11:19] LABS: Total Protein 5.5 g/dL (6.4-8.2)
[2021-08-09 12:33] LABS: Potassium 2.6 mmol/L (3.5-5.1)
[2021-08-09] MEDS: POTASSIUM CHL 10MEQ/50ML 50 ML IV SCH ×8 (12:45→16:00)
[2021-08-09 16:45] LABS: Band Neutrophils % (manual) 1; Lymphocytes % (manual) 79 (10.0-50.0); Monocytes % (manual) 3 (0-12)
[2021-08-09 20:47] LABS: BUN/Creatinine Ratio 53.8
[2021-08-09 20:54] LABS: Calcium 8.8 mg/dL (8.5-10.1)
[2021-08-09 22:00] VITALS: BP 154/36
[2021-08-09] MEDS: ACETAMINOPHEN 325 MG TAB PO PRN (22:22)
[2021-08-09] MEDS ORDERED: ALBUTEROL SULF 2.5 MG/0.5ML(0.5%) NEB SOLN NEB PRN (22:45)
[2021-08-10] MEDS: ACCU-CHEK COMFORT CURVE STRIP VI SCH ×3 (01:23→12:00)
[2021-08-10] MEDS: InsuLIN REG 1unit/0.01ml Soln (100units/ml) SC SCH ×3 (01:34→12:00)
[2021-08-10 05:25] VITALS: BP 111/36
[2021-08-10 07:47] VITALS: BP 119/88
[2021-08-10 09:18] LABS: Hemoglobin 8.6 g/dL (13.5-17.5); Mean Corpuscular Hemoglobin 32.2 pg (28.0-32.0); Mean Corpuscular Hgb Conc. 29.8 g/dL (32.0-36.0); Mean Corpuscular Volume 107.9 fL (80.0-100.0); Red Blood Cells 2.69 10^6/uL (4.5-5.90)
[2021-08-10 09:30] LABS: Albumin 3.8 g/dL (3.4-5.0); Calcium 9.3 mg/dL (8.5-10.1)
[2021-08-10 09:32] LABS: BUN/Creatinine Ratio 53.3; Total Protein 5.3 g/dL (6.4-8.2)
[2021-08-10 09:33] LABS: Red Cell Distribution Width 20.7 % (11.8-14.3)
[2021-08-10 09:36] LABS: Band Neutrophils % (manual) 0; Basophils % (manual) 0 (0.0-2.0); Blast Cells 0; Eosinophils % (manual) 0 (0-7); Metamyelocytes % 0; Monocytes % (manual) 0 (0-12); Myelocytes % 0; Promyelocytes % 0; Reactive Lymphocytes 0
[2021-08-10 09:48] LABS: Bilirubin, Total 1.6 mg/dL (0.2-1.0)
[2021-08-10] MEDS: predniSONE 20 MG TAB PO SCH (10:00)
[2021-08-10] MEDS: INSULIN LANTUS (GLARGINE) 1 /0.01ml (100units/ml) SC SCH (10:00)
[2021-08-10] MEDS: ALLOPURINOL 100 MG TAB PO SCH (10:00)
[2021-08-10] MEDS: PANTOPRAZOLE 40 MG/10 ML VIAL INJ IV SCH (10:00)
[2021-08-10] MEDS ORDERED: NITR0.4S29 SL (11:29)
[2021-08-10] MEDS ORDERED: ALB5IS NEB (11:29)
[2021-08-10] MEDS ORDERED: ALL100T PO (11:29)
[2021-08-10] MEDS ORDERED: INSLANTI SC (11:29)
[2021-08-10] MEDS ORDERED: PRED20TA2 PO (11:29)
[2021-08-10] MEDS ORDERED: ACET325T10 PO (11:29)
[2021-08-10] MEDS ORDERED: PANT40TA2 PO (11:30)
[2021-08-10 11:35] VITALS: BP 122/28
[2021-08-10 12:58] LABS: Lymphocytes % (manual) 89 (10.0-50.0)
[2021-08-10 14:04] LABS: Potassium 2.5 mmol/L (3.5-5.1)
[2021-08-10 16:38] LABS: CRP High Sensitivity 1.04 mg/dL (< 0.3)
[2021-08-10 16:53] VITALS: BP 131/34
[2021-08-11 11:00] LABS: Hepatitis A Ab IgM Negative
[2021-08-11 11:11] LABS: Hepatitis B Core IgM Negative
[2021-08-11 11:18] LABS: Hepatitis C Antibody Negative (Negative)
== END 2021-08-10 19:39 | disposition hospice, home (50) | DRG 870 ==
LOC: ER 15:41 → EDBD 15:41 → TELE 21:12 → EDBD 07-24 20:57 → OBSVTOIN 07-24 20:57 → CATH ICU 07-27 16:47 → TELE-CENTR 08-06 18:48
PROVIDERS: ADMIT Internal Medicine; ATTEND Internal Medicine
PROC: 5A1955Z Respiratory Ventilation, Greater than 96 Consecutive Hours (ICD-10-PCS; principal; 2021-07-24)
PROC: 0BH17EZ Insertion of Endotracheal Airway into Trachea, Via Natural or Artificial Opening (ICD-10-PCS; 2021-07-24)
PROC: 05HN33Z Insertion of Infusion Device into Left Internal Jugular Vein, Percutaneous Approach (ICD-10-PCS; 2021-07-24)
PROC: B544ZZA Ultrasonography of Left Jugular Veins, Guidance (ICD-10-PCS; 2021-07-24)
PROC: 05HM33Z Insertion of Infusion Device into Right Internal Jugular Vein, Percutaneous Approach (ICD-10-PCS; 2021-07-24)
PROC: B543ZZA Ultrasonography of Right Jugular Veins, Guidance (ICD-10-PCS; 2021-07-24)
PROC: 5A1D70Z Performance of Urinary Filtration, Intermittent, Less than 6 Hours Per Day (ICD-10-PCS; 2021-07-26)
PROC: 5A1D70Z Performance of Urinary Filtration, Intermittent, Less than 6 Hours Per Day (ICD-10-PCS; 2021-08-02)
PROC: 5A1D70Z Performance of Urinary Filtration, Intermittent, Less than 6 Hours Per Day (ICD-10-PCS; 2021-08-05)
DX: A41.9 Sepsis, unspecified organism (principal); J96.01 Acute respiratory failure with hypoxia; E88.3 Tumor lysis syndrome; R65.21 Severe sepsis with septic shock; J18.9 Pneumonia, unspecified organism; G93.41 Metabolic encephalopathy; N17.9 Acute kidney failure, unspecified; C91.10 Chronic lymphocytic leukemia of B-cell type not having achieved remission; G93.1 Anoxic brain damage, not elsewhere classified; I13.0 Hypertensive heart and chronic kidney disease with heart failure and stage 1 through stage 4 chronic kidney disease, or unspecified chronic kidney disease; N39.0 Urinary tract infection, site not specified; E87.0 Hyperosmolality and hypernatremia; E87.5 Hyperkalemia; I50.9 Heart failure, unspecified; I25.10 Atherosclerotic heart disease of native coronary artery without angina pectoris; E66.9 Obesity, unspecified; E83.39 Other disorders of phosphorus metabolism; D69.6 Thrombocytopenia, unspecified; E83.51 Hypocalcemia; D50.0 Iron deficiency anemia secondary to blood loss (chronic); E87.6 Hypokalemia; N18.30 Chronic kidney disease, stage 3 unspecified; E11.65 Type 2 diabetes mellitus with hyperglycemia; E11.22 Type 2 diabetes mellitus with diabetic chronic kidney disease; E11.40 Type 2 diabetes mellitus with diabetic neuropathy, unspecified; I48.91 Unspecified atrial fibrillation; E78.5 Hyperlipidemia, unspecified; K21.9 Gastro-esophageal reflux disease without esophagitis; N40.0 Benign prostatic hyperplasia without lower urinary tract symptoms; R31.0 Gross hematuria; Z20.822 Contact with and (suspected) exposure to COVID-19; Z68.34 Body mass index [BMI] 34.0-34.9, adult; Z87.891 Personal history of nicotine dependence; Z95.0 Presence of cardiac pacemaker; Z90.49 Acquired absence of other specified parts of digestive tract
CPT/HCPCS: 31500; 36415; 36430; 36556; 36600; 70450; 71045; 74018; 74176; 76705; 76775; 76937; 80048; 80053; 80074; 80202; 81001; 82607; 82746; 82805; 82962; 83010; 83605; 83615; 83735; 83880; 84100; 84154; 84484; 84550; 85007; 85014; 85018; 85027; 85045; 85384; 85610; 85730; 86141; 86850; 86880; 86900; 86901; 86920; 86922; 87040; 87070; 87081; 87086; 87205; 87340; 87426; 90935; 93005; 93306; 94002; 94003; 94640; 94644; 94645; 95819; 96361; 96365; 96375; 96379; 99291; C9113; G0378; J0330; J0696; J1642; J1815; J2185; J2250; J2405; J3480; J7060; P9047